=== PATIENT | male | born 1975 | race Caucasian/White ===

== ENCOUNTER 2021-03-03 08:06 | Outpatient (CLI) | payer BC | END 2021-03-03 08:07 | disposition home or self-care (01) | LOC: LABBT 08:06 | PROVIDERS: ATTEND Student in an Organized Health Care Education/Training Program | DX: Z01.818 Encounter for other preprocedural examination (principal); R09.81 Nasal congestion; R09.82 Postnasal drip; R44.8 Other symptoms and signs involving general sensations and perceptions; J34.89 Other specified disorders of nose and nasal sinuses; J34.3 Hypertrophy of nasal turbinates | CPT/HCPCS: 93005; 93010 ==

== ENCOUNTER 2021-03-07 09:22 | Day surgery (SDC) | payer BC ==
[2021-03-06 12:45] VITALS: BMI 23.7
[2021-03-07] MEDS ORDERED: AFRIN NASAL MIST 15 ML BOT ONE ×3 (09:46→14:12)
[2021-03-07] MEDS ORDERED: Lidocaine 1% w/Epinephrine 1:100K 20 ML VIAL ONE (09:46)
[2021-03-07] MEDS ORDERED: EPINEPHrine 1 MG/ML AMP ONE (09:46)
[2021-03-07] MEDS ORDERED: Bacitracin Zinc Ointment 30 gm TUBE ONE (09:46)
[2021-03-07] MEDS ORDERED: Acetaminophen 500 MG TAB ONE (09:57)
[2021-03-07] MEDS ORDERED: Fentanyl 250 MCG/5 ML VIAL ONE (09:59)
[2021-03-07] MEDS ORDERED: Midazolam HCl 2 mg/2 ml Vial ONE (09:59)
[2021-03-07] MEDS ORDERED: Propofol 500 MG/50 ML VIAL ONE (09:59)
[2021-03-07] MEDS ORDERED: Rocuronium Bromide 10 MG/ML (10ML VIAL) ONE (12:10)
[2021-03-07] MEDS ORDERED: Lidocaine 1% PF 5 ML VIAL ONE (12:10)
[2021-03-07] MEDS ORDERED: Ketorolac Tromethamine 30 MG/ML VIAL ONE (12:10)
[2021-03-07] MEDS ORDERED: Dexamethasone 20 MG/5 ML VIAL ONE (12:10)
[2021-03-07] MEDS ORDERED: PROPOFOL 200 MG/20 ML VIAL ONE (12:10)
[2021-03-07] MEDS ORDERED: Glycopyrrolate 0.2 MG/ML 5 ML SYRINGE ONE (12:10)
[2021-03-07] MEDS ORDERED: Ondansetron PF 4 MG/2 ML Vial ONE (12:10)
== END 2021-03-07 16:23 | disposition home or self-care (01) ==
LOC: SDC 09:22
PROVIDERS: ATTEND Student in an Organized Health Care Education/Training Program
PROC: 09SM4ZZ Reposition Nasal Septum, Percutaneous Endoscopic Approach (ICD-10-PCS; principal; 2021-03-07)
PROC: 09BL8ZZ Excision of Nasal Turbinate, Via Natural or Artificial Opening Endoscopic (ICD-10-PCS; principal; 2021-03-07)
PROC: 09QM8ZZ Repair Nasal Septum, Via Natural or Artificial Opening Endoscopic (ICD-10-PCS; principal; 2021-03-07)
DX: J34.89 Other specified disorders of nose and nasal sinuses (principal); J34.2 Deviated nasal septum; J34.3 Hypertrophy of nasal turbinates
CPT/HCPCS: C1889; J0171; J1100; J1885; J2250; J2405; J2704; J3010